=== PATIENT | female | born 1965 | race Caucasian/White ===

== ENCOUNTER 2021-05-04 20:36 | Emergency (ER) | payer MEDICAID ==
[~2021-05-04] VITALS: Ht 160 cm; Wt 70.3 kg
[2021-05-04 20:45] VITALS: BP_SYST 142
--- NOTE | 2021-05-04 20:45 | NUR ---
Placed in room 6 . Placed on potline monitor, blood pressure machine and pulse oximeter. To gown for exam. Side rails up. Report given to SUKHDEEP BALBUENA.
--- NOTE | 2021-05-04 21:13 | NUR ---
PATIENT A/OX4. PATIENT IS LYING IN BED, RESTING CALMLY, NO S/S OF DISTRESS. PATIENT CHEST RISE AND FALL SYMMETRICAL. PATIENT RESTING COMFORTABLY, BED IN LOW AND LOCKED POSITION, 3 BED RAILS UP.
--- NOTE | 2021-05-04 21:35 | NUR ---
MARIBEL Allen at bedside examining patient.
[2021-05-04] MEDS ORDERED: NACL 0.9% 1,000 ML IV ONE (21:45)
[2021-05-04] MEDS ORDERED: METOCLOPRAMIDE HCL 10 MG/2 ML VIAL IVP ONE (21:45)
--- NOTE | 2021-05-04 22:15 | NUR ---
PATIENT INFORMED DR. KRUEGER HER PAIN IS CURRENTLY "06/02." PATIENT IS LAYING IN BED QUIETLY, NO C/O PAIN OR S/S OF DISCOMFORT, ON HER WAY TO CT WITH TECH.
[2021-05-04] MEDS ORDERED: IOHEXOL 350 mgI/mL, 150 ML INFUS..BTL IV ONE (22:16)
[2021-05-04 22:23] LABS: CALCIUM 9.8 mg/dL (8.4-11.0); CREATININE 0.82 mg/dL (0.55-1.30); POTASSIUM 3.7 mmol/L (3.5-5.1)
[2021-05-04 22:30] LABS: BASOPHILS # (AUTO) 0.1 K/uL (0.0-0.2); BASOPHILS % (AUTO) 0.6 % (0.0-2.0); EOSINOPHILS # (AUTO) 0.1 K/uL (0.0-0.4); EOSINOPHILS % (AUTO) 0.7 % (0.0-4.0); HEMATOCRIT 42.9 % (36-48); HEMOGLOBIN 14.3 g/dL (12.0-16.0); LYMPHOCYTES # (AUTO) 2.2 K/uL (1.0-5.5); LYMPHOCYTES % (AUTO) 23.7 % (20.5-51.5); MEAN CORPUSCULAR HEMOGLOBIN 29 pg (27-31); MEAN CORPUSCULAR HGB CONC 33 % (32-36); MEAN CORPUSCULAR VOLUME 86 fL (79.0-98.0); MONOCYTES # (AUTO) 0.5 K/uL (0.0-1.0); NEUTROPHILS # (AUTO) 6.4 K/uL (1.8-7.7); PLATELET COUNT (AUTO) 221 K/uL (130-430); RED BLOOD CELL COUNT(AUTO) 4.96 MIL/uL (4.2-6.2); RED CELL DISTRIBUTION WIDTH 13.6 % (9.0-15.0); WHITE BLOOD COUNT (AUTO) 9.2 K/uL (4.8-10.8)
[2021-05-04 22:39] LABS: TOTAL BILIRUBIN 0.2 mg/dL (0.0-1.0)
[2021-05-04 22:40] LABS: ALBUMIN 4.1 g/dL (3.4-4.8)
[2021-05-04 23:02] LABS: PROTHROMBIN TIME 10.2 SECS (9.5-12.5)
[2021-05-04 23:20] LABS: BILIRUBIN,URINE NEGATIVE (NEGATIVE); BLOOD, URINE 1+ (NEGATIVE); CLARITY/URINE CLEAR (CLEAR); GLUCOSE,URINE NEGATIVE (NEGATIVE); KETONES,URINE NEGATIVE (NEGATIVE); LEUKOCYTE ESTERASE ,URINE NEGATIVE (NEGATIVE); NITRITE, URINE NEGATIVE (NEGATIVE); PROTEIN URINE NEGATIVE (NEGATIVE); UROBILINOGEN,URINE 0.2 (0.2-1.0)
[2021-05-04 23:26] VITALS: BP_SYST 122
[2021-05-04 23:31] LABS: COLOR,URINE YELLOW (YELLOW)
[2021-05-04] MEDS ORDERED: PROC10TA13 PO (23:31)
[2021-05-04] MEDS ORDERED: DIPH25CA83 PO (23:31)
--- NOTE | 2021-05-04 23:40 | NUR ---
PATIENT IS A/OX4. PATIENT VERBALIZED UNDERSTANDING OF DISCHARGE EDUCATION, NO FURTHER QUESTIONS. PATIENT LEFT WITH HER DAUGHTER, ALL BELONGINGS, RADIOLOGY CD, AND ALL DISCHARGE PEPERWORK. PATIENT WALKS WITH STRONG GAIT.
[2021-05-05 00:13] LABS: BACTERIA,URINE RARE /HPF (None Seen); MUCUS,URINE None Seen /LPF (None Seen); RBC,URINE 0-3 /HPF (0-3); WBC,URINE 0-3 /HPF (0-3)
== END 2021-05-04 23:26 | disposition home or self-care (01) ==
LOC: SED 20:36
DX: G43.909 Migraine, unspecified, not intractable, without status migrainosus (principal); R55 Syncope and collapse
CPT/HCPCS: 36415; 70450; 70496; 76376; 80053; 81000; 85025; 85610; 96361; 96374; 99285; J2765; J7030; Q9967

== ENCOUNTER 2022-09-01 14:28 | Emergency (ER) | payer MEDICAID ==
[~2022-09-01] VITALS: Ht 165.1 cm; Wt 72.6 kg
[~2022-09-01 14:28] MED LIST: DIPH25CA83 PO; PROC10TA13 PO
[2022-09-01 14:53] VITALS: BP_SYST 131; PULSE 91; RESP 18; TEMP 98.1; O2SAT 98
[2022-09-01] MEDS ORDERED: KETOROLAC TROMETHAMINE 60 MG/2 ML VIAL IM ONE (16:15)
[2022-09-01] MEDS ORDERED: NEU300 PO (18:05)
[2022-09-01 18:27] VITALS: BP_SYST 131; PULSE 91; RESP 18; TEMP 98.1; O2SAT 98
== END 2022-09-01 18:27 | disposition home or self-care (01) ==
LOC: SED 14:28
DX: M54.31 Sciatica, right side (principal); I73.9 Peripheral vascular disease, unspecified; M79.661 Pain in right lower leg; M25.551 Pain in right hip; I10 Essential (primary) hypertension; Z79.899 Other long term (current) drug therapy
CPT/HCPCS: 99285; 93970; 96372; J1885

== ENCOUNTER 2023-12-22 20:58 | Emergency (ER) | payer MEDICAID ==
[~2023-12-22] VITALS: Ht 167.6 cm; Wt 79.4 kg
[~2023-12-22 20:58] MED LIST changes: +NEU300 PO; -PROC10TA13 PO; +PROC10TA69 PO
[2023-12-22 21:27] VITALS: BP_SYST 121; PULSE 83; RESP 20; TEMP 98; O2SAT 97
[2023-12-23 02:32] LABS: BASOPHILS % (AUTO) 0.6 % (0.0-2.0); EOSINOPHILS # (AUTO) 0.1 K/uL (0.0-0.4); EOSINOPHILS % (AUTO) 1.4 % (0.0-4.0); HEMATOCRIT 40.6 % (36-48); HEMOGLOBIN 13.7 g/dL (12.0-16.0); LYMPHOCYTES # (AUTO) 3.5 K/uL (1.0-5.5); MEAN CORPUSCULAR HEMOGLOBIN 30 pg (27-31); MEAN CORPUSCULAR HGB CONC 34 % (32-36); MEAN CORPUSCULAR VOLUME 87 fL (79.0-98.0); MONOCYTES # (AUTO) 0.6 K/uL (0.0-1.0); MONOCYTES % (AUTO) 8.1 % (1.7-9.3); NEUTROPHILS # (AUTO) 3.3 K/uL (1.8-7.7); NEUTROPHILS % (AUTO) 43.9 % (40.0-70.0); PLATELET COUNT (AUTO) 231 K/uL (130-430); RED BLOOD CELL COUNT(AUTO) 4.64 MIL/uL (4.2-6.2); RED CELL DISTRIBUTION WIDTH 13.3 % (9.0-15.0); WHITE BLOOD COUNT (AUTO) 7.5 K/uL (4.8-10.8)
[2023-12-23 02:58] LABS: CALCIUM 9.2 mg/dL (8.4-11.0); CREATININE 0.81 mg/dL (0.55-1.30); POTASSIUM 3.8 mmol/L (3.5-5.1)
[2023-12-23] MEDS: IBUPROFEN 400 MG TABLET PO ONE (03:54)
[2023-12-23 03:55] VITALS: BP_SYST 103; PULSE 65; RESP 22; TEMP 98; O2SAT 98
[2023-12-23] MEDS: ACETAMINOPHEN 500 MG TABLET PO ONE (03:55)
== END 2023-12-23 03:56 | disposition home or self-care (01) ==
LOC: SED 20:58
DX: R22.41 Localized swelling, mass and lump, right lower limb (principal); I10 Essential (primary) hypertension; G43.909 Migraine, unspecified, not intractable, without status migrainosus; Z79.899 Other long term (current) drug therapy
CPT/HCPCS: 36415; 80048; 83880; 85025; 93971; 99284